=== PATIENT | male | born 1990 | race Caucasian/White ===

== ENCOUNTER 2018-06-20 14:09 | Inpatient (IN) | payer BC ==
[~2018-06-20] VITALS: Ht 198.1 cm; Wt 115.7 kg
--- NOTE | 2018-06-20 15:59 | NUR ---
History, Chart, Medications and Allergies reviewed before start of procedure. Patient confirms NPO status and agrees with scheduled surgery. Lungs clear T/O to Auscultation.
--- NOTE | 2018-06-20 16:34 | NUR ---
06/20/18 1634 Shama Rosales PT USED RESTROOM PRIOR TO ENTERING OR2.
--- NOTE | 2018-06-20 18:47 | NUR ---
PT ARRIVED TO THE ROOM AT APPROXIMATELY 1800. PT AWAKE AND ORIENTED UPON ARRIVAL. PT RATED PAIN AT 6/10 FOR WHICH HE WAS GIVEN IV PAIN MEDICATION. PT DENIES NAUSE AND IS TOLERATING SIPS OF CLEAR LIQUIDS. PT'S MOTHER IS AT THE BEDSIDE. VSS. WILL MONITOR UNTIL REPORT TO ONCOMING RN.
--- NOTE | 2018-06-20 20:30 | NUR ---
ASSESSMENT COMPLETED. PT PALE.SHIVERING TEMP 99.7. HEART RATE 120'S. C/O NAUSEA AND GERD.NYSTAGMUS NOTED. PT A/O. REPORTED HX KIDNEY PROB CHILD AND UNABLE TO TAKE TORADOL. SEE VS AND LABS.NO VOID YET POSTOP.
--- NOTE | 2018-06-20 22:25 | NUR ---
NS BOLUS STARTED PER ORDERS. MONITORING OF TEMPS CONTINUED. IMPROVED NAUSEA WITH REGLAN. NO VOID YET.
--- NOTE | 2018-06-21 00:35 | NUR ---
PT CONT WITH NO VOID.BLADDER SCAN FOR 11 ML ONLY. 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 PROTONIX ALSO ORDERED FOR PT C/O GERD WHICH HE REPORTS CHRONIC. BLOOD CX ORDERED WELL PRIOR LACTIC WAS ORDERED WHICH RETURNED WNL.FLAGYL WAS ALSO ADDED TO PTS MEDS AND WAS STARTED. SEE FLOW SHEET FOR VS.
[2018-06-21 05:35] LABS: BASOPHILS ABSOLUTE AUTO 0.04 K/mm3 (0.00-0.23); BASOPHILS PERCENT AUTO 0 % (0-2); EOSINOPHILS PERCENT AUTO 0 % (0-6); Hematocrit 42.4 % (37.0-53.0); IMMATURE GRAN ABSOLUTE AUTO 0.32 K/mm3 (0.00-0.10); IMMATURE GRAN PERCENT AUTO 2 % (0-1); LYMPHOCYTES ABSOLUTE AUTO 0.62 K/mm3 (0.84-5.20); LYMPHOCYTES PERCENT AUTO 4 % (21-46); MONOCYTES ABSOLUTE AUTO 1.21 K/mm3 (0.16-1.47); MONOCYTES PERCENT AUTO 7 % (4-13); Mean Corpuscular HGB 28.3 pg (26.0-34.0); NEUTROPHILS PERCENT AUTO 88 % (41-73); Platelet Count 109 K/mm3 (150-400); RDW Coefficient Variation 13.5 % (11.7-14.2); RDW Standard Deviation 41.9 fL (35.1-46.3); Red Blood Cell Count 4.95 M/mm3 (4.30-5.90); White Blood Cell Count 17.89 K/mm3 (4.00-11.30)
[2018-06-21 05:39] LABS: Mean Corpuscular Volume 86 fL (80-100)
[2018-06-21 06:28] LABS: Anion Gap 10 mmol/L (6-16); Blood Urea Nitrogen 12 mg/dL (8-24); Bun/Creatinine Ratio 10.4 (12.0-20.0); CO2, Blood 20 mmol/L (21-32); Calcium, Blood 7.7 mg/dL (8.5-10.1); Chloride, Blood 109 mmol/L (98-108); Creatinine, Blood 1.15 mg/dL (0.60-1.20); Glomerular Filtration Rate >60 (60-); Glucose, Blood 107 mg/dL (70-99); Potassium, Blood 3.3 mmol/L (3.5-5.5); Sodium, Blood 139 mmol/L (136-145)
--- NOTE | 2018-06-21 07:59 | NUR ---
SUMMARY SEE ALL MEDS ORDERS,LABS,VS. PT REPORTS IMPROVED NAUSEA ALTHOUGH TOOK 1 MORE DOSE OF REGLAN THIS AM. REPORTS SUBLIMAZE EFFCTIVE FOR PAIN CONTROL. HAS BINDER ON AND IS USING I.S.PT AMBULATED X 1 WTIH ASSIST S/P FLUID BOLUS X2 TONIGHT AND VOIDED 500ML. CREAT/GFR RETURNING WNL THIS AM.WBC IMPROVING IN 17 RANGE IV FLUIDS CURRENTLY RUNNING AT 15O ML /HR. TEMP LAST NIGHT FOR STAFF NOTED AT 103.7 WHICH MOTHER CHECKED AND READ HIGHER JUST PRIOR TO SECOND DOCTOR CALL BEING INITIATED.ALL IV ANTIBIOTICS GIVEN PER ORDERS. PROTONIX GIVEN PER NEW ORDERS. IV SITE CLEAR. PASCUAL VISUAL DISTURBANCES. REMAINS A/O THIS AM. MOTHER AT BEDSIDE.APPRISED OF CHANGES DURING NIGHT. REPORTS PLEASED WITH IMPROVEMENTS.
--- NOTE | 2018-06-21 13:13 | NUR ---
PT MEDICATED WITH REGLAN AND ZOFRAN PER ORDERS. PROTONIX GIVEN. CALL LIGHT IN REACH. VISITOR TO BEDSIDE.
[2018-06-22 05:51] LABS: BASOPHILS ABSOLUTE AUTO 0.04 K/mm3 (0.00-0.23); BASOPHILS PERCENT AUTO 0 % (0-2); EOSINOPHILS PERCENT AUTO 0 % (0-6); Hemoglobin 13.1 g/dL (13.5-17.5); IMMATURE GRAN PERCENT AUTO 1 % (0-1); LYMPHOCYTES ABSOLUTE AUTO 0.76 K/mm3 (0.84-5.20); LYMPHOCYTES PERCENT AUTO 5 % (21-46); MONOCYTES ABSOLUTE AUTO 1.07 K/mm3 (0.16-1.47); MONOCYTES PERCENT AUTO 7 % (4-13); Mean Corpuscular HGB 28.5 pg (26.0-34.0); Mean Corpuscular HGB Conc 32.8 g/dL (31.5-36.5); Mean Corpuscular Volume 87 fL (80-100); NEUTROPHILS ABSOLUTE AUTO 13.07 K/mm3 (1.96-9.15); NEUTROPHILS PERCENT AUTO 87 % (41-73); Platelet Count 107 K/mm3 (150-400); RDW Coefficient Variation 13.9 % (11.7-14.2); RDW Standard Deviation 44.5 fL (35.1-46.3); Red Blood Cell Count 4.59 M/mm3 (4.30-5.90); White Blood Cell Count 15.04 K/mm3 (4.00-11.30)
[2018-06-22 06:10] LABS: Anion Gap 7 mmol/L (6-16); Blood Urea Nitrogen 10 mg/dL (8-24); Bun/Creatinine Ratio 11.4 (12.0-20.0); CO2, Blood 23 mmol/L (21-32); Chloride, Blood 110 mmol/L (98-108); Creatinine, Blood 0.88 mg/dL (0.60-1.20); Glomerular Filtration Rate >60 (60-); Glucose, Blood 87 mg/dL (70-99); Magnesium, Blood 1.7 mg/dL (1.6-2.4); Phosphorus, Blood 1.7 mg/dL (2.5-4.9); Potassium, Blood 3.5 mmol/L (3.5-5.5); Sodium, Blood 140 mmol/L (136-145)
--- NOTE | 2018-06-22 13:49 | NUR ---
Patient gave patient care nursing assistant permission at 1330 on 06/22/18 to participate in care.
--- NOTE | 2018-06-23 05:15 | NUR ---
LYING IN SEMI FOWLERS WITH EYES CLOSED. HAS RESTED WELL THROUGHOUT SHIFT. C/O FEELING HOT AT START OF SHIFT. LOW GRADE TEMP REPORTED OF 99.6. TREATED WITH TYLENOL. HAD SEVERAL EPISODES OF NAUSEA AND ONE EPISODE OF VOMITING - 200ML BILIOUS GREEN FLUID. URINE CONTINUES TO BE CONCENTRATED ORANGE. REPORTS LIQUID BROWN BM'S. HAD ONLY C/O PAIN THAT NEEDED TO BE MEDICATED ONCE THIS SHIFT. AMBULATED IN SIM ONCE, BUT HAS BEEN OOB X3 THIS SHIFT. STATES THAT HE FEELS MUCH BETTER THAN HE DID AT START OF SHIFT. SAFETY MEAURES IN PLACE. WILL GIVE HAND OFF TO ONCOMING SHIFT USING SBAR.
[2018-06-23 06:06] LABS: BASOPHILS ABSOLUTE AUTO 0.03 K/mm3 (0.00-0.23); BASOPHILS PERCENT AUTO 0 % (0-2); EOSINOPHILS ABSOLUTE AUTO 0.07 K/mm3 (0.00-0.68); EOSINOPHILS PERCENT AUTO 1 % (0-6); Hematocrit 38.3 % (37.0-53.0); Hemoglobin 12.6 g/dL (13.5-17.5); IMMATURE GRAN ABSOLUTE AUTO 0.12 K/mm3 (0.00-0.10); IMMATURE GRAN PERCENT AUTO 1 % (0-1); LYMPHOCYTES ABSOLUTE AUTO 0.78 K/mm3 (0.84-5.20); LYMPHOCYTES PERCENT AUTO 6 % (21-46); MONOCYTES ABSOLUTE AUTO 1.11 K/mm3 (0.16-1.47); MONOCYTES PERCENT AUTO 8 % (4-13); Mean Corpuscular HGB 28.3 pg (26.0-34.0); Mean Corpuscular HGB Conc 32.9 g/dL (31.5-36.5); Mean Corpuscular Volume 86 fL (80-100); Mean Platelet Volume 12.9 fL (9.1-12.4); NEUTROPHILS ABSOLUTE AUTO 12.13 K/mm3 (1.96-9.15); NEUTROPHILS PERCENT AUTO 85 % (41-73); Platelet Count 124 K/mm3 (150-400); RDW Coefficient Variation 14.3 % (11.7-14.2); Red Blood Cell Count 4.45 M/mm3 (4.30-5.90); White Blood Cell Count 14.24 K/mm3 (4.00-11.30)
--- NOTE | 2018-06-23 16:05 | NUR ---
PT LEFT ROOM WITH TRANSPORT TO CT SCAN
--- NOTE | 2018-06-23 18:11 | NUR ---
SHIFT SUMMARY PT A&OX4, VSS, TEMP OFF/ON MANAGED WITH TYLENOL. POD3 LAP APPY, STERIS CDI, MOD ABD DISTENSION, TENDER TO TOUCH. PAIN MANAGED WITH 1 TAB PRN. DINA CLEAR LIQ, LOW PO INTAKE. IVF @ 150, ABX INFUSED ORDERED. CT ABD/PELV COMPLETED TODAY. AMB W/SBA & GB TO [facility] AND HALLWAY. VOIDING WELL, CONTINUES TO BE DK ORANGE IN COLOR. WILL CTM & TX PER EMAR UNTIL REPORT GIVEN TO ONCOMING NOC RN.
--- NOTE | 2018-06-24 06:35 | NUR ---
LYING IN SUPINE POSITION WITH EYES CLOSED. HAS RESTED WELL THROUGHOUT SHIFT. ELEVATED TEMP TREATED WITH TYLENOL. HAD SEVERAL EPISODES OF NAUSEA. INCREASED BOWEL TONES NOTED. URINE CONTINUES TO BE CONCENTRATED ORANGE. HAD ONLY C/O PAIN THAT NEEDED TO BE MEDICATED ONCE THIS SHIFT. AMBULATED IN SIM ONCE THIS SHIFT. STATES THAT HE FEELS MUCH BETTER THAN HE DID AT START OF SHIFT. SAFETY MEAURES IN PLACE. WILL GIVE HAND OFF TO ONCOMING SHIFT USING SBAR.
--- NOTE | 2018-06-24 11:15 | NUR ---
dr flores to room for eval. plan to continue abx and ivf and monitor.
--- NOTE | 2018-06-24 11:45 | NUR ---
lunch provided. pt sitting in chair. call light in reach.
--- NOTE | 2018-06-24 12:51 | NUR ---
PT ABX STARTED. SITTING IN CHAIR. STEPH.
--- NOTE | 2018-06-24 13:55 | NUR ---
PT SITTING IN CHAIR. NADN. DENIES NEED FOR PAIN MEDS.
[2018-06-25 05:36] LABS: BASOPHILS ABSOLUTE AUTO 0.06 K/mm3 (0.00-0.23); BASOPHILS PERCENT AUTO 1 % (0-2); EOSINOPHILS ABSOLUTE AUTO 0.13 K/mm3 (0.00-0.68); EOSINOPHILS PERCENT AUTO 1 % (0-6); Hematocrit 37.9 % (37.0-53.0); Hemoglobin 12.4 g/dL (13.5-17.5); IMMATURE GRAN ABSOLUTE AUTO 0.43 K/mm3 (0.00-0.10); IMMATURE GRAN PERCENT AUTO 4 % (0-1); LYMPHOCYTES PERCENT AUTO 7 % (21-46); MONOCYTES ABSOLUTE AUTO 1.21 K/mm3 (0.16-1.47); MONOCYTES PERCENT AUTO 10 % (4-13); Mean Corpuscular HGB 28.1 pg (26.0-34.0); Mean Corpuscular HGB Conc 32.7 g/dL (31.5-36.5); Mean Corpuscular Volume 86 fL (80-100); NEUTROPHILS ABSOLUTE AUTO 9.45 K/mm3 (1.96-9.15); NEUTROPHILS PERCENT AUTO 78 % (41-73); Platelet Count 156 K/mm3 (150-400); RDW Coefficient Variation 13.9 % (11.7-14.2); RDW Standard Deviation 43.8 fL (35.1-46.3); Red Blood Cell Count 4.42 M/mm3 (4.30-5.90); White Blood Cell Count 12.18 K/mm3 (4.00-11.30)
[2018-06-25 05:58] LABS: Magnesium, Blood 1.8 mg/dL (1.6-2.4)
[2018-06-25 05:59] LABS: Alanine Aminotransfer (ALT/SGP 48 U/L (12-78); Albumin, Blood 2.1 g/dL (3.4-5.0); Albumin/Globulin Ratio 0.6 (0.8-1.8); Alk Phos 65 U/L (50-136); Anion Gap 13 mmol/L (6-16); Aspartate Aminotrans (AST/SGOT 47 U/L (12-37); Bilirubin, Total 0.5 mg/dL (0.1-1.0); Blood Urea Nitrogen 7 mg/dL (8-24); Bun/Creatinine Ratio 10.3 (12.0-20.0); CO2, Blood 23 mmol/L (21-32); Calcium, Blood 8.2 mg/dL (8.5-10.1); Chloride, Blood 106 mmol/L (98-108); Creatinine, Blood 0.68 mg/dL (0.60-1.20); Globulin, Blood 3.4 g/dL (2.2-4.0); Glomerular Filtration Rate >60 (60-); Glucose, Blood 81 mg/dL (70-99); Phosphorus, Blood 2.4 mg/dL (2.5-4.9); Potassium, Blood 2.9 mmol/L (3.5-5.5); Sodium, Blood 142 mmol/L (136-145); Total Protein, Blood 5.5 g/dL (6.4-8.2)
[2018-06-25 17:36] LABS: Source, Urine Clean Catch
[2018-06-25 18:27] LABS: Bilirubin, Urine Neg (Neg); Blood, Urine Neg (Neg); Glucose Qualitative, Urine Neg (Neg); Ketones, Urine 4+ (Neg); Leukocyte Esterase, Urine 1+ (Neg); Nitrite, Urine Neg (Neg); Protein, Urine 1+ (Neg); Urobilinogen, Urine NORM (Normal)
[2018-06-25 18:34] LABS: Appearance, Urine Clear (Clear); Bacteria Mod /hpf; Color, Urine Yellow (P-Yellow); Red Blood Cells, Urine 0-2 /hpf (0-2); Squamous Epithelial Cells Not Seen /hpf (Few); White Blood Cells, Urine 0-2 /hpf (0-5)
--- NOTE | 2018-06-25 18:56 | NUR ---
PT INDEPENDENT IN ROOM. C/O NAUSEA WHEN GETTING UP FROM BED OR CHAIR, MEDICATED PER EMAR. C/O HEADACHE X1 MEDICATED WITH TYLENOL. NO OTHER PAIN MEDS NEEDED DURING SHIFT. BOTH IVS TAKEN OUT THIS MORNING DUE TO LEAKING. 2 NEW IVS PUT IN, MULTIPLE IVS RUNNING AT THIS TIME. INSICION WNL. COMFORTABLE AT THIS TIME. CALL LIGHT IN REACH
--- NOTE | 2018-06-26 04:42 | NUR ---
POD 6 S/P LAP APPY. DID WELL DURING NIGHT. NO VOMITING THIS SHIFT BUT HAS BEEN NAUSEATED BUT MANAGED WELL WITH PHENGERGAN. PT STATES PASSING FLATUS. STILL NOT TAKING MUCH IN ORALLY. CONT IV CLINIMIX AND IV ABX. VOIDING WELL. ABD STERI STRIPS INTACT. HAS BEEN AMBULATING WELL. CALL LIGHT IN REACH.
--- NOTE | 2018-06-26 07:27 | NUR ---
DENIES ANY PAIN OR NAUSEA AT THIS TIME, ENCOURAGED TO USE IS AND AMBULATE TODAY, REPORTS HAVING BM'S, CONT. TO MONITOR FOR ANY CHANGES.
--- NOTE | 2018-06-26 15:03 | NUR ---
SITTING ON CHAIR, C/O NAUSEA, PT INFORMED IT'S NOT TIME FOR NAUSEA MEDS AT THIS TIME EXCEPT FOR ZOFRAN, PT STATES ZOFRAN IS NOT WORKING FOR NAUSEA, OFFERED ICE CHIPS FOR NOW BUT PT REFUSED STATES HE WILL BE OK UNTIL IT'S TIME FOR PHENERGAN, ENCOURAGED IS USE AND TO AMBULATE DOWN THE HALLS.
--- NOTE | 2018-06-27 04:14 | NUR ---
POD 7 S/P LAP APPY. PT VSS T/O NIGHT. STERI STRIPS CDI. TYLENOL GIVEN FOR PAIN PER PT REQ. PT REP LESS NAUSEA THIS SHIFT, DENIED NEED FOR NAUSEA MED. BT HYPO, PT REP PASSING FLATUS. PT NEEDING MOTIVATION TO AMB IN HALLS. CLINIMIX AND ABX CONT PER ORDERS. PT USING CALL LIGHT FOR ASSISTANCE, WILL CONT TO MONITOR UNTIL REP GIVEN TO ONCOMING RN.
[2018-06-27] MEDS ORDERED: METR500 PO (08:56)
[2018-06-27] MEDS ORDERED: Augmentin 875-1 EACH PO (08:56)
--- NOTE | 2018-06-27 11:49 | NUR ---
DISCHARGE: PT DC TO HOME AT THIS TIME WITH MOTHER. IV DC'D WNL. SCRIPTS GIVEN. VERBAL UNDERSTANDING OF INSTRUCTIONS, FOLLOW UP, MEDICATIONS. LEFT AMBULATORY TO CAR WITH BELONGINGS.
== END 2018-06-27 11:51 | disposition home or self-care (01) | DRG 854 ==
LOC: ER 14:09 → SURS 15:48
PROVIDERS: ADMIT Surgery
PROC: 0DTJ4ZZ Resection of Appendix, Percutaneous Endoscopic Approach (ICD-10-PCS; principal; 2018-06-20 08:30)
DX: A41.9 Sepsis, unspecified organism (principal); N17.9 Acute kidney failure, unspecified; K35.80 Unspecified acute appendicitis; Z88.8 Allergy status to other drugs, medicaments and biological substances
CPT/HCPCS: 36415; 74176; 74177; 80048; 80053; 81001; 83605; 83735; 84100; 85025; 87040; 87086; 88304; 96360; 99285-25; C9113; J0295; J2405; J2543; J2550; J2710; J2765; J3010; J3480; J7030; J7060; J7120; Q9967

== ENCOUNTER → 2018-06-20 | Outpatient (CLI) | payer BC ==
[~2018-06-20] MED LIST: Augmentin 875-1 EACH PO; HYDR1TAB94 PO; METR500 PO
[2018-06-20 13:54] LABS: Hematocrit 49.2 % (37.0-53.0); Hemoglobin 17.2 g/dL (13.5-17.5); Mean Corpuscular HGB 29.2 pg (26.0-34.0); Mean Corpuscular Volume 83 fL (80-100); Mean Platelet Volume 13.3 fL (9.1-12.4); Platelet Count 140 K/mm3 (150-400); RDW Coefficient Variation 13.3 % (11.7-14.2); RDW Standard Deviation 40.7 fL (35.1-46.3)
[2018-06-20 14:03] LABS: Albumin/Globulin Ratio 0.9 (0.8-1.8); Bilirubin, Total 1.9 mg/dL (0.1-1.0); Calcium, Blood 10.5 mg/dL (8.5-10.1); Creatinine, Blood 1.89 mg/dL (0.60-1.20); Globulin, Blood 4.3 g/dL (2.2-4.0); Potassium, Blood 3.2 mmol/L (3.5-5.5); Total Protein, Blood 8.3 g/dL (6.4-8.2)
[2018-06-20 14:26] LABS: BAND PERCENT MAN 13 % (0-8); BASOPHILS PERCENT MAN 0 % (0-2); EOSINOPHILS PERCENT MAN 0 % (0-6); LYMPHOCYTES PERCENT MAN 4 % (21-46); METAMYELOCYTE PERCENT MAN 2 % (0-0); MONOCYTES ABSOLUTE MAN 1.51 K/mm3 (0.16-1.47); MONOCYTES PERCENT MAN 5 % (4-13); NEUTROPHILS ABSOLUTE MAN 26.87 K/mm3 (1.96-9.15); SEG NEUTROPHILS PERCENT MAN 76 % (41-73); TOTAL CELLS COUNTED 100
== END | disposition home or self-care (01) ==
LOC: LAB EV 13:48 → LAB SHORT 13:48
PROVIDERS: Physician Assistant
DX: R10.31 Right lower quadrant pain (principal)
CPT/HCPCS: 80053; 85025

== ENCOUNTER 2018-06-29 15:42 | Inpatient (IN) | payer BC ==
[~2018-06-29] VITALS: Ht 198.1 cm; Wt 112.1 kg
[~2018-06-29 15:42] MED LIST changes: -HYDR1TAB94 PO
[2018-06-29 16:20] LABS: Calcium, Ionized (POC) 1.13 mmol/L (1.10-1.46); Chloride (POC) 102 mmol/L (98-108); Creatinine (POC) 0.6 mg/dL (0.8-1.3); Glucose (ISTAT POC) 104 mg/dL (70-99); Hemoglobin (POC) 15.6 g/dL (13.5-17.5); Potassium (POC) 3.1 mmol/L (3.5-5.5); Sodium (POC) 135 mmol/L (135-148); Total CO2 (POC) 21 mmol/L (21-32)
[2018-06-29 16:21] LABS: BASOPHILS ABSOLUTE AUTO 0.16 K/mm3 (0.00-0.23); BASOPHILS PERCENT AUTO 1 % (0-2); EOSINOPHILS ABSOLUTE AUTO 0.11 K/mm3 (0.00-0.68); EOSINOPHILS PERCENT AUTO 0 % (0-6); Hematocrit 45.4 % (37.0-53.0); IMMATURE GRAN ABSOLUTE AUTO 0.94 K/mm3 (0.00-0.10); IMMATURE GRAN PERCENT AUTO 3 % (0-1); LYMPHOCYTES ABSOLUTE AUTO 1.41 K/mm3 (0.84-5.20); LYMPHOCYTES PERCENT AUTO 5 % (21-46); MONOCYTES ABSOLUTE AUTO 1.93 K/mm3 (0.16-1.47); MONOCYTES PERCENT AUTO 6 % (4-13); Mean Corpuscular HGB 28.2 pg (26.0-34.0); Mean Corpuscular Volume 85 fL (80-100); Mean Platelet Volume 12.3 fL (9.1-12.4); NEUTROPHILS PERCENT AUTO 85 % (41-73); Platelet Count 335 K/mm3 (150-400); RDW Coefficient Variation 13.5 % (11.7-14.2); RDW Standard Deviation 42.2 fL (35.1-46.3); Red Blood Cell Count 5.32 M/mm3 (4.30-5.90); White Blood Cell Count 30.35 K/mm3 (4.00-11.30)
[2018-06-29 16:37] LABS: Alanine Aminotransfer (ALT/SGP 41 U/L (12-78); Albumin, Blood 2.7 g/dL (3.4-5.0); Albumin/Globulin Ratio 0.6 (0.8-1.8); Alk Phos 73 U/L (50-136); Anion Gap 11 mmol/L (6-16); Aspartate Aminotrans (AST/SGOT 19 U/L (12-37); Bilirubin, Total 0.6 mg/dL (0.1-1.0); Blood Urea Nitrogen 9 mg/dL (8-24); Bun/Creatinine Ratio 11.8 (12.0-20.0); CO2, Blood 22 mmol/L (21-32); Calcium, Blood 8.5 mg/dL (8.5-10.1); Chloride, Blood 102 mmol/L (98-108); Creatinine, Blood 0.77 mg/dL (0.60-1.20); Globulin, Blood 4.4 g/dL (2.2-4.0); Glomerular Filtration Rate >60 (60-); Glucose, Blood 98 mg/dL (70-99); Potassium, Blood 3.2 mmol/L (3.5-5.5); Sodium, Blood 135 mmol/L (136-145); Total Protein, Blood 7.1 g/dL (6.4-8.2)
[2018-06-29 17:55] LABS: Source, Urine Clean Catch
[2018-06-29 18:32] LABS: Bilirubin, Urine Neg (Neg); Blood, Urine Neg (Neg); Glucose Qualitative, Urine Neg (Neg); Ketones, Urine 4+ (Neg); Leukocyte Esterase, Urine 1+ (Neg); Nitrite, Urine Neg (Neg); Protein, Urine 1+ (Neg); Specific Gravity, Urine 1.015 (1.003-1.022); Urobilinogen, Urine NORM (Normal); pH, Urine 6.5 (5.0-8.0)
[2018-06-29 18:46] LABS: Appearance, Urine Hazy (Clear); Color, Urine Yellow (P-Yellow)
[2018-06-29 18:50] LABS: Bacteria Few /hpf; Red Blood Cells, Urine 0-2 /hpf (0-2); Squamous Epithelial Cells Not Seen /hpf (Few)
[2018-06-29] MEDS ORDERED: HYDR1TAB94 PO (19:14)
--- NOTE | 2018-06-30 02:33 | NUR ---
ASSUMED CARE AT 2150.TELE HAS BEEN PLACED.FURTHER PAIN MEDS GIVEN AND MAINLINE IV FLUIDS INFUSING TO CLEAR SITE. PT SLEEPING WHEN UNDISTRUBED.
--- NOTE | 2018-06-30 06:12 | NUR ---
SUMMARY DILAUDID EFFECTIVE FOR PAIN CONTROL TONIGHT.RECEIVING ANTIBIOTIC THERAPY. DRAIN CONTINUES PATENT. PT VOIDING.AFEBRILE.COLOR APPEARS LESS PALE THROUGH THE NIGHT.
--- NOTE | 2018-06-30 12:44 | NUR ---
CONSENT FOR CARE Obtained consent from pt to assist in care with ryan RN for DOS 06/30/18
--- NOTE | 2018-06-30 17:20 | NUR ---
SHIFT SUMMARY PT TOLERATING WATER AND HAD SNACK EARLIER. PT ENC TO AMBULATE IN HALLWAY. PT BEEN ASSISTED WITH ADL'S PRN. PT HAD APPROX 10ML OUT OF DRAIN TODAY (BROWN FLUID). PT REPORTS DR BORJA HERE [place] TO SEE PT. FRIENDS/FAMILY TO SEE PT TODAY. PT BEEN MED ORDERED AND PER PT REQ.
--- NOTE | 2018-06-30 17:25 | NUR ---
PT AMBULATING IN HALLWAY WITH FAMILY. PT REPORTS HAVING VOMITING IN BATHROOM.
--- NOTE | 2018-06-30 18:38 | NUR ---
DR BORJA NOTIFIED OF PT REQUESTING PAIN AND NAUSEA MEDICATION AND THAT ORDERS APPEARED TO HAVE TIMED OUT OR BEEN DC'D. NEW ORDERS RECIEVED. SEE ORDERS.
[2018-07-01 04:15] LABS: BASOPHILS ABSOLUTE AUTO 0.08 K/mm3 (0.00-0.23); BASOPHILS PERCENT AUTO 0 % (0-2); EOSINOPHILS ABSOLUTE AUTO 0.13 K/mm3 (0.00-0.68); EOSINOPHILS PERCENT AUTO 1 % (0-6); Hematocrit 41.3 % (37.0-53.0); Hemoglobin 13.1 g/dL (13.5-17.5); IMMATURE GRAN ABSOLUTE AUTO 0.46 K/mm3 (0.00-0.10); IMMATURE GRAN PERCENT AUTO 3 % (0-1); LYMPHOCYTES ABSOLUTE AUTO 1.24 K/mm3 (0.84-5.20); LYMPHOCYTES PERCENT AUTO 7 % (21-46); MONOCYTES ABSOLUTE AUTO 1.85 K/mm3 (0.16-1.47); MONOCYTES PERCENT AUTO 10 % (4-13); Mean Corpuscular HGB 27.6 pg (26.0-34.0); Mean Corpuscular HGB Conc 31.7 g/dL (31.5-36.5); Mean Corpuscular Volume 87 fL (80-100); Mean Platelet Volume 12.1 fL (9.1-12.4); NEUTROPHILS PERCENT AUTO 80 % (41-73); Platelet Count 293 K/mm3 (150-400); RDW Coefficient Variation 13.2 % (11.7-14.2); RDW Standard Deviation 42.6 fL (35.1-46.3); Red Blood Cell Count 4.74 M/mm3 (4.30-5.90); White Blood Cell Count 18.76 K/mm3 (4.00-11.30)
[2018-07-01 04:36] LABS: Anion Gap 10 mmol/L (6-16); Blood Urea Nitrogen 7 mg/dL (8-24); Bun/Creatinine Ratio 8.1 (12.0-20.0); CO2, Blood 25 mmol/L (21-32); Calcium, Blood 8.4 mg/dL (8.5-10.1); Chloride, Blood 103 mmol/L (98-108); Creatinine, Blood 0.87 mg/dL (0.60-1.20); Glomerular Filtration Rate >60 (60-); Glucose, Blood 87 mg/dL (70-99); Magnesium, Blood 1.8 mg/dL (1.6-2.4); Phosphorus, Blood 3.1 mg/dL (2.5-4.9); Potassium, Blood 4.1 mmol/L (3.5-5.5); Sodium, Blood 138 mmol/L (136-145)
--- NOTE | 2018-07-01 07:40 | NUR ---
SUMMARY PT HAD EPISODE LAST NIGHT OF N/V AND DIARRHEA. NEMATOLOGIST NOTED HEART RATE JUMPED TO 150 THEN GRADUALLY BACK DOWN WNL AFTER.PT WAS TRYING TO CLEAN DIARRHEA UP HAD URGENCY NOT QUITE MAKING IT TO TOILET ENTIRELY.PT WITH NO CP OR SOB NO SYMPTOMS WTIH INCREASED HEART RATE. WHEN RELAXED AND BACK IN BED CONTINUED NO SYMPTOMS WELL.PT WAS UNABLE TO KEEP FULL CONTRAST DOWN THIS AM, BUT CT DONE THIS AM PER ORDERS. PT VERB CONTRAST MAKES HIM NAUSEATED.
--- NOTE | 2018-07-01 12:04 | NUR ---
0830 REQUEST NAP PATIENT REQUESTS HOURLY ROUNDS NOT BE DONE AT THIS TIME HE WOULD LIKE TO SLEEP. PATIENT WILL CALL IF HAS ANY NEEDS. PATIENT REQUESTS DOOR CLOSED AND LIGHTS TURNED OFF
--- NOTE | 2018-07-01 18:09 | NUR ---
summary PATIENT RECEIVES ADEQUATE PAIN CONTROL WITH PRESCRIBED MEDS. AMBULATED IN SIM AND SHOWERED THIS SHIFT WITHOUT DIFFICULTY. SLIGHT NAUSEA WHICH RESOLVED AFTER PHENERGAN. DRAINAGE OF 10 ML MILKY BROWN , ODOROUS DRAINAGE FROM PERCUTANEOUS DRAIN
--- NOTE | 2018-07-01 18:14 | NUR ---
PATIENT REQUEST HE BE ALLOWED TO SLEEP AND REQUESTS NO BEDSIDE REPORT WITH ONCOMING SHIFT
--- NOTE | 2018-07-02 04:19 | NUR ---
SHIFT SUMMARY PT A&O X4 T/O SHIFT. NO ACUTE CHANGES. R SIDE ABD DRAIN, VERY SCANT PURULENT DRAINAGE OVER SHIFT. DRESSING CDI. ABD LAP SITES CDI. ABD SOFT; BT X4. NAUSEA AND PAIN MANGED PER EMAR. EMESIS X1 EVENT PER PT. SCD'S TO BLE'S. PRESSURE ULCER PREVENTION DISCUSSED, PT REPOSITIONS SELF IN BED. INDEPENDENT TO TOILET. RA; DENIES SOB AND CP; TELEMETRY IN PLACE. SR PER RN ACLS. CALL LIGHT IN REACH; PT DEMONSTRATES USE. WCTM UNTIL REPORT TO DAY SHIFT RN.
[2018-07-02 05:45] LABS: BASOPHILS ABSOLUTE AUTO 0.09 K/mm3 (0.00-0.23); BASOPHILS PERCENT AUTO 1 % (0-2); EOSINOPHILS ABSOLUTE AUTO 0.18 K/mm3 (0.00-0.68); EOSINOPHILS PERCENT AUTO 1 % (0-6); Hematocrit 38.1 % (37.0-53.0); Hemoglobin 12.6 g/dL (13.5-17.5); IMMATURE GRAN ABSOLUTE AUTO 0.47 K/mm3 (0.00-0.10); IMMATURE GRAN PERCENT AUTO 3 % (0-1); LYMPHOCYTES ABSOLUTE AUTO 1.21 K/mm3 (0.84-5.20); LYMPHOCYTES PERCENT AUTO 7 % (21-46); MONOCYTES ABSOLUTE AUTO 1.99 K/mm3 (0.16-1.47); MONOCYTES PERCENT AUTO 11 % (4-13); Mean Corpuscular HGB 28.3 pg (26.0-34.0); Mean Corpuscular HGB Conc 33.1 g/dL (31.5-36.5); Mean Corpuscular Volume 85 fL (80-100); Mean Platelet Volume 12.5 fL (9.1-12.4); NEUTROPHILS ABSOLUTE AUTO 13.78 K/mm3 (1.96-9.15); NEUTROPHILS PERCENT AUTO 78 % (41-73); Platelet Count 316 K/mm3 (150-400); RDW Coefficient Variation 13.3 % (11.7-14.2); RDW Standard Deviation 41.9 fL (35.1-46.3); Red Blood Cell Count 4.46 M/mm3 (4.30-5.90); White Blood Cell Count 17.72 K/mm3 (4.00-11.30)
[2018-07-02 06:10] LABS: Magnesium, Blood 1.8 mg/dL (1.6-2.4)
[2018-07-02 06:12] LABS: Anion Gap 10 mmol/L (6-16); Blood Urea Nitrogen 6 mg/dL (8-24); Bun/Creatinine Ratio 8.4 (12.0-20.0); CO2, Blood 24 mmol/L (21-32); Calcium, Blood 8.3 mg/dL (8.5-10.1); Chloride, Blood 104 mmol/L (98-108); Creatinine, Blood 0.72 mg/dL (0.60-1.20); Glomerular Filtration Rate >60 (60-); Glucose, Blood 86 mg/dL (70-99); Phosphorus, Blood 3.1 mg/dL (2.5-4.9); Potassium, Blood 3.6 mmol/L (3.5-5.5); Sodium, Blood 138 mmol/L (136-145)
--- NOTE | 2018-07-02 15:00 | NUR ---
SUMMARY DR MERA IN TO SEE PT THIS AM, INFORMED PIGTAIL DRAIN HAS HAD VERY SCANT DRAINAGE OVERNITE. DR ASSESS & FLUSH, FLOW IMPROVED. PT MOTHER STATE CONCERNS R/T TX, REQUEST TO SPEAK WITH DR MERA, ASSISTANT SALES DIRECTOR GIVE MESSAGE, HE HAS ATTEMPTED TO CALL HER HOWEVER HE STATE HAS BEEN UNSUCCESSFUL UP TO THIS TIME. PT IS A/O X4, HE STATE CONTINUING LOWER ABD PAIN & NAUSEA, PRN PHENERGAN & DILAUDID GIVEN FOR RELIEF/CONTROL. HE HAS BEEN UP AMBULATE IN SIM TODAY. VSS, NO FEVERS. IV ANTIBX CONTINUE.
--- NOTE | 2018-07-03 07:42 | NUR ---
SHIFT SUMMARY PT A&O X4 T/O SHIFT. DRAIN TO R ABD; PATENT; DRESSING CDI; 10ML FLUSH TOTAL OUT 30ML THICK BROWN DRAINAGE; FOUL ODOR NOTED. PAIN IN ABD MANAGED PER EMAR. FREQUENT NAUSEA; TX PER EMAR. ABD SOFT; BTX4; LITTLE PO INTAKE. PT REPORTS ONE SMALL, SOFT/LOOSE BM. IV GTT PER EMAR. VOIDING WELL. SCD'S TO BLE'S. AMBULATED IN SIM X1. PT'S PARENTS AT BEDSIDE THIS AM. TELEMETRY IN PLACE; SR PER INTERNAL COMBUSTION ENGINE INSPECTOR. PT DENIES SOB, CP AND NAUSEA. CALL LIGHT IN REACH; PT DEMONSTRATES USE. REPORT GIVEN TO DAY SHIFT RN.
[2018-07-03 08:50] LABS: BASOPHILS ABSOLUTE AUTO 0.08 K/mm3 (0.00-0.23); BASOPHILS PERCENT AUTO 1 % (0-2); EOSINOPHILS ABSOLUTE AUTO 0.13 K/mm3 (0.00-0.68); EOSINOPHILS PERCENT AUTO 1 % (0-6); Hematocrit 42.5 % (37.0-53.0); Hemoglobin 13.9 g/dL (13.5-17.5); IMMATURE GRAN ABSOLUTE AUTO 0.37 K/mm3 (0.00-0.10); IMMATURE GRAN PERCENT AUTO 2 % (0-1); LYMPHOCYTES ABSOLUTE AUTO 0.96 K/mm3 (0.84-5.20); LYMPHOCYTES PERCENT AUTO 6 % (21-46); MONOCYTES ABSOLUTE AUTO 1.88 K/mm3 (0.16-1.47); MONOCYTES PERCENT AUTO 11 % (4-13); Mean Corpuscular HGB 27.8 pg (26.0-34.0); Mean Corpuscular HGB Conc 32.7 g/dL (31.5-36.5); Mean Corpuscular Volume 85 fL (80-100); Mean Platelet Volume 12.2 fL (9.1-12.4); NEUTROPHILS PERCENT AUTO 80 % (41-73); Platelet Count 337 K/mm3 (150-400); RDW Coefficient Variation 13.2 % (11.7-14.2); RDW Standard Deviation 41.4 fL (35.1-46.3); White Blood Cell Count 17.32 K/mm3 (4.00-11.30)
--- NOTE | 2018-07-03 18:41 | NUR ---
SUMMARY PT CONTINUES TO C/O MILD NAUSEA AND PAIN. PT WAS ENCOURAGED TO TRY CLEAR ENSURE, HE WAS ABLE TO DRINK SOME BUT STATED IT WAS "NOT SITTING WELL". IV NUTRITION/LIPIDS WAS STARTED PER FAMILY AND PT REQUEST. NEW 18G IV WAS STARTED IN RIGHT AC. VOIDING WNL, REPORTS PASSING FLATUS. DRAIN FLUSHED PER ORDERS. WCTM AND REPORT TO NOC RN
[2018-07-04 05:12] LABS: Magnesium, Blood 2.3 mg/dL (1.6-2.4); Phosphorus, Blood 4.3 mg/dL (2.5-4.9)
--- NOTE | 2018-07-04 07:10 | NUR ---
SHIFT SUMMARY PT A&O X4 T/O SHIFT. DRAIN IN R ABD PATENT; 10 ML FLUSH PER ORDERS WITH 10ML OUT THIS AM; 45 ML TOTAL FROM START OF SHIFT; BROWN/FINN, FOUL ODOR NOTED. LS CLEAR, VSS. ABD SOFT; BTX4; PT REPORTS BM. PAIN AND NAUSEA MANAGED PER EMAR. IV GTT PER EMAR. PT INDEPENDENT. POOR PO INTAKE. REPORT GIVEN TO DAY SHIFT RN.
--- NOTE | 2018-07-04 09:30 | NUR ---
ASSUMED CARE OF PATIENT AT THIS TIME. PATIENT STATES NO PAIN, 'JUST AN ACHE' AT DRAIN SITE R FLANK. STATES HE ATE A 1/2 SANDWICH THIS AM AND HAD NO NAUSEA. 'IT'S THE FIRST THING I'VE KEPT DOWN IN AWHILE.' AMBULATING IN SIM. NO C/O AT THIS TIME. CONT TO MONITOR.
--- NOTE | 2018-07-04 14:01 | NUR ---
Patient has given this student nurse permission to look at his records, perform a physical examination, give him his medications, and to shadow his nurse for tomorrow 07-05-2018.
--- NOTE | 2018-07-04 18:30 | NUR ---
SHIFT SUMMARY PATIENT REPORTS DOING WELL AT THIS TIME. HAS AMBULATED IN SIM MULTIPLE TIMES. DENIES NEED FOR PAIN MEDICATION. TOLERATING DIET W/O C/O NAUSEA. 80 ML FINN, PRURLENT DRAINAGE IN WOUND DRAIN. NO ACUTE CHANGES OR C/O.
--- NOTE | 2018-07-05 06:20 | NUR ---
S/P PIGTAIL DRAIN PLACEMENT R/T P/O SURGICAL ABSCESS FROM APPENDECTOMY. DID GREAT DURING NIGHT. PAIN IS MINIMAL AND MANAGED WELL. MEDICATED ONCE FOR SOME SLIGHT NAUSEA. HAS BEEN TOLERATING PO. PLAN FOR ABD CT WITH CONTRAST THIS AM. CONT IV CLINIMIX/LIPIDS WITH IV ABX. CALL LIGHT IN REACH.
--- NOTE | 2018-07-05 09:42 | NUR ---
DENIES ANY NAUSEA, REPORTS APETITE IS BETTER TODAY, PT HAVING A BREAKFAST BURRITO BROUGHT IN BY FAMILY, DENIES ANY PAIN, AMBULATED THIS AM, STATES OVERALL FEELING BETTER TODAY.
--- NOTE | 2018-07-05 13:31 | NUR ---
PIGTAIL DRAIN FLUSHED THIS AM W/ 10CC NS, FLUSHED WITHOUT DIFFICULTY, DRAINED FINN PURULENT, FOUL SMELLING DRAINAGE.
--- NOTE | 2018-07-05 18:00 | NUR ---
SUMMARY FELT BETTER T/O SHIFT, TOLERATED REGULAR DIET, AMBULATING DOWN THE HALLS, NO FEVER, PIGTAIL DRAIN CONTINUES TO DRAIN BROWN FOUL SMELLING DRAINAGE.
--- NOTE | 2018-07-05 18:05 | NUR ---
PT GAVE THIS STUDENT RN PERMISSION TO CARE FOR HIM TOMORROW.
[2018-07-06 05:09] LABS: BASOPHILS ABSOLUTE AUTO 0.12 K/mm3 (0.00-0.23); BASOPHILS PERCENT AUTO 1 % (0-2); EOSINOPHILS ABSOLUTE AUTO 0.24 K/mm3 (0.00-0.68); EOSINOPHILS PERCENT AUTO 3 % (0-6); Hematocrit 42.4 % (37.0-53.0); Hemoglobin 13.7 g/dL (13.5-17.5); IMMATURE GRAN ABSOLUTE AUTO 0.38 K/mm3 (0.00-0.10); IMMATURE GRAN PERCENT AUTO 4 % (0-1); LYMPHOCYTES ABSOLUTE AUTO 1.72 K/mm3 (0.84-5.20); LYMPHOCYTES PERCENT AUTO 19 % (21-46); MONOCYTES ABSOLUTE AUTO 1.06 K/mm3 (0.16-1.47); MONOCYTES PERCENT AUTO 12 % (4-13); Mean Corpuscular HGB 27.7 pg (26.0-34.0); Mean Corpuscular HGB Conc 32.3 g/dL (31.5-36.5); Mean Corpuscular Volume 86 fL (80-100); Mean Platelet Volume 12.3 fL (9.1-12.4); NEUTROPHILS ABSOLUTE AUTO 5.56 K/mm3 (1.96-9.15); NEUTROPHILS PERCENT AUTO 61 % (41-73); Platelet Count 335 K/mm3 (150-400); RDW Coefficient Variation 13.4 % (11.7-14.2); RDW Standard Deviation 41.9 fL (35.1-46.3); Red Blood Cell Count 4.94 M/mm3 (4.30-5.90); White Blood Cell Count 9.08 K/mm3 (4.00-11.30)
--- NOTE | 2018-07-06 05:48 | NUR ---
DID WELL DURING NIGHT AND SLEPT T/O MOST OF SHIFT. PIGTAIL DRAINED 30ML OF TAMEKA COLOR FLUID. WAS MEDICATED ONCE THIS AM FOR SOME NAUSEA. PAIN IS MINIMAL. NO OTHER NEEDS OR COMPLAINTS. CALL LIGHT IN REACH.
--- NOTE | 2018-07-06 17:27 | NUR ---
DISCHARGE: DC TO HOME AT THIS TIME. VERBALIZED UNDERSTANDING OF INSTRUCTIONS, FOLLOW UP, PROBLEMS TO REPORT AND MEDICATIONS. IVS DC'D WNL. SCRIPT GIVEN. PT LEFT VIA WHEELCHAIR TO CAR WITH THIS RN, BELONGINGS IN HAND.
== END 2018-07-06 17:27 | disposition home or self-care (01) | DRG 862 ==
LOC: ER 15:42 → SURS 18:20
PROVIDERS: Physician Assistant; Surgery; ADMIT Surgery
PROC: 0W9G30Z Drainage of Peritoneal Cavity with Drainage Device, Percutaneous Approach (ICD-10-PCS; principal; 2018-06-29)
DX: T81.43XA Infection following a procedure, organ and space surgical site, initial encounter (principal); K65.1 Peritoneal abscess; Y83.6 Removal of other organ (partial) (total) as the cause of abnormal reaction of the patient, or of later complication, without mention of misadventure at the time of the procedure
CPT/HCPCS: 36415; 49406; 74177; 80047; 80048; 80053; 81001; 82947; 83605; 83690; 83735; 84100; 85014; 85025; 87086; 88108; 96361-59; 96374-59; 96375-59; 99285-25; J1170; J1650; J2405; J2543; J2550; J7030; J7050; J7120; Q9967

== ENCOUNTER 2019-01-09 00:05 | Emergency (ER) | payer BC ==
[~2019-01-09] VITALS: Ht 200.7 cm; Wt 111.1 kg
[~2019-01-09 00:05] MED LIST changes: +HYDR1TAB94 PO
[2019-01-09] MEDS ORDERED: IBUP400 PO (00:57)
== END 2019-01-09 01:48 | disposition home or self-care (01) ==
LOC: ER 00:05
DX: S16.1XXA Strain of muscle, fascia and tendon at neck level, initial encounter (principal); X58.XXXA Exposure to other specified factors, initial encounter
CPT/HCPCS: 96372; 99283-25; J1885

== ENCOUNTER → 2020-02-17 | Outpatient (CLI) | payer OTHER ==
[~2020-02-17] MED LIST changes: +IBUP400 PO
== END ==
LOC: LAB SHORT 12:40 → LAB EV 12:40
DX: K21.9 Gastro-esophageal reflux disease without esophagitis (principal)
CPT/HCPCS: 87338

== ENCOUNTER 2020-09-26 13:16 | Day surgery (SDC) | payer OTHER ==
[~2020-09-26] VITALS: Ht 195.6 cm; Wt 129.8 kg
[~2020-09-26 13:16] MED LIST changes: +PEPCID20 MG PO
== END 2020-09-26 14:48 | disposition home or self-care (01) ==
LOC: ORSCSDS 13:16
PROVIDERS: Student in an Organized Health Care Education/Training Program
PROC: 0DB78ZX Excision of Stomach, Pylorus, Via Natural or Artificial Opening Endoscopic, Diagnostic (ICD-10-PCS; principal; 2020-09-26 14:30)
PROC: 0DB48ZX Excision of Esophagogastric Junction, Via Natural or Artificial Opening Endoscopic, Diagnostic (ICD-10-PCS; principal; 2020-09-26 14:30)
PROC: 0DB98ZX Excision of Duodenum, Via Natural or Artificial Opening Endoscopic, Diagnostic (ICD-10-PCS; principal; 2020-09-26 14:30)
DX: R10.13 Epigastric pain (principal); K21.00 Gastro-esophageal reflux disease with esophagitis, without bleeding; K29.70 Gastritis, unspecified, without bleeding; K21.9 Gastro-esophageal reflux disease without esophagitis; G47.33 Obstructive sleep apnea (adult) (pediatric)
CPT/HCPCS: 88305; 88342; J2704; J7120

== ENCOUNTER 2023-05-27 22:24 | Emergency (ER) | payer OTHER ==
[~2023-05-27] VITALS: Ht 203.2 cm; Wt 138.3 kg
[2023-05-28] MEDS ORDERED: OMEP20ER PO (01:11)
[2023-05-28 02:37] LABS: BASOPHILS ABSOLUTE AUTO 0.05 K/mm3 (0.00-0.23); BASOPHILS PERCENT AUTO 0 % (0-2); EOSINOPHILS ABSOLUTE AUTO 0.07 K/mm3 (0.00-0.68); EOSINOPHILS PERCENT AUTO 1 % (0-6); Hematocrit 42.2 % (37.0-53.0); Hemoglobin 14.6 g/dL (13.5-17.5); IMMATURE GRAN ABSOLUTE AUTO 0.06 K/mm3 (0.00-0.10); IMMATURE GRAN PERCENT AUTO 1 % (0-1); LYMPHOCYTES ABSOLUTE AUTO 2.53 K/mm3 (0.84-5.20); LYMPHOCYTES PERCENT AUTO 19 % (21-46); MONOCYTES ABSOLUTE AUTO 1.32 K/mm3 (0.16-1.47); MONOCYTES PERCENT AUTO 10 % (4-13); Mean Corpuscular HGB 29.2 pg (26.0-34.0); Mean Corpuscular HGB Conc 34.6 g/dL (31.5-36.5); Mean Corpuscular Volume 84 fL (80-100); Mean Platelet Volume 11.9 fL (9.1-12.4); NEUTROPHILS PERCENT AUTO 69 % (41-73); Platelet Count 196 K/mm3 (150-400); RDW Coefficient Variation 13.2 % (11.7-14.2); RDW Standard Deviation 40.8 fL (35.1-46.3); White Blood Cell Count 13.13 K/mm3 (4.00-11.30)
[2023-05-28 03:17] LABS: Albumin, Blood 3.6 g/dL (3.4-5.0); Bilirubin, Total 0.8 mg/dL (0.1-1.0); Bun/Creatinine Ratio 23.7 (12.0-20.0); Creatinine, Blood 0.68 mg/dL (0.60-1.20); Globulin, Blood 3.5 g/dL (2.2-4.0); Potassium, Blood 3.9 mmol/L (3.5-5.5); Thyroid Stimulating Hormone 1.17 uIU/mL (0.360-4.800); Total Protein, Blood 7.1 g/dL (6.4-8.2)
[2023-05-28 05:15] LABS: Source, Urine Clean Catch
[2023-05-28 05:21] LABS: Bilirubin, Urine Neg (Neg); Blood, Urine Neg (Neg); Glucose Qualitative, Urine Neg (Neg); Ketones, Urine 2+ (Neg); Leukocyte Esterase, Urine Neg (Neg); Nitrite, Urine Neg (Neg); Protein, Urine 1+ (Neg); Specific Gravity, Urine 1.025 (1.003-1.022); Urobilinogen, Urine NORM (Normal)
[2023-05-28 05:26] LABS: Appearance, Urine Clear (Clear); Color, Urine Yellow (P-Yellow)
[2023-05-28] MEDS ORDERED: Ibuprofen600 MG PO (05:34)
[2023-05-28 05:45] VITALS: BP 148/74
== END 2023-05-28 05:44 | disposition home or self-care (01) ==
LOC: ER 22:24
PROVIDERS: Emergency Medicine
DX: S39.012A Strain of muscle, fascia and tendon of lower back, initial encounter (principal); R10.12 Left upper quadrant pain; R05.9 Cough, unspecified; D72.829 Elevated white blood cell count, unspecified; Z68.35 Body mass index [BMI] 35.0-35.9, adult; Z79.899 Other long term (current) drug therapy; X58.XXXA Exposure to other specified factors, initial encounter
CPT/HCPCS: 71046; 80053; 83605; 83690; 84443; 84484; 85025; 85379; 93005; 93010; 96374; 99284-25; A9270; J1885

== ENCOUNTER → 2025-01-25 | Outpatient (CLI) | payer OTHER ==
[~2025-01-25] MED LIST changes: +Ibuprofen600 MG PO; +OMEP20ER PO
[2025-01-25 11:18] LABS: Alanine Aminotransfer (ALT/SGP 31.0 U/L (12-78); Albumin, Blood 4.2 g/dL (3.4-5.0); Albumin/Globulin Ratio 1.4 (0.8-1.8); Anion Gap 13.0 mmol/L (3-11); Aspartate Aminotrans (AST/SGOT 21.0 U/L (12-37); BASOPHILS ABSOLUTE AUTO 0.09 K/mm3 (0.00-0.23); BASOPHILS PERCENT AUTO 2 % (0-2); Bilirubin, Total 0.8 mg/dL (0.1-1.0); Blood Urea Nitrogen 10.0 mg/dL (8-24); CO2, Blood 25.0 mmol/L (21-32); Calcium, Blood 9.4 mg/dL (8.5-10.1); Chloride, Blood 107.0 mmol/L (98-108); Creatinine, Blood 0.85 mg/dL (0.60-1.20); EOSINOPHILS ABSOLUTE AUTO 0.13 K/mm3 (0.00-0.68); EOSINOPHILS PERCENT AUTO 2 % (0-6); Globulin, Blood 3.1 g/dL (2.2-4.0); Glucose, Blood 91.0 mg/dL (70-99); Hematocrit 45.5 % (37.0-53.0); Hemoglobin 15.8 g/dL (13.5-17.5); IMMATURE GRAN ABSOLUTE AUTO 0.07 K/mm3 (0.00-0.10); IMMATURE GRAN PERCENT AUTO 1 % (0-1); LYMPHOCYTES ABSOLUTE AUTO 2.26 K/mm3 (0.84-5.20); LYMPHOCYTES PERCENT AUTO 38 % (21-46); MONOCYTES ABSOLUTE AUTO 0.53 K/mm3 (0.16-1.47); MONOCYTES PERCENT AUTO 9 % (4-13); Mean Corpuscular HGB Conc 34.7 g/dL (31.5-36.5); Mean Corpuscular Volume 85 fL (80-100); NEUTROPHILS ABSOLUTE AUTO 2.86 K/mm3 (1.96-9.15); NEUTROPHILS PERCENT AUTO 48 % (41-73); NRBC ABSOLUTE 0.00 K/mm3 (0.00-0.02); NRBC Auto 0.0 /100 WBC (0.0-0.2); Platelet Count 162 K/mm3 (150-400); Potassium, Blood 4.0 mmol/L (3.5-5.5); RDW Coefficient Variation 13.6 % (11.7-14.2); RDW Standard Deviation 41.9 fL (35.1-46.3); Sodium, Blood 141.0 mmol/L (136-145); Total Protein, Blood 7.3 g/dL (6.4-8.2)
== END ==
LOC: LAB 11:03 → LAB SHORT 11:03
DX: R07.9 Chest pain, unspecified (principal)
CPT/HCPCS: 80053; 84484; 85025